=== PATIENT | male | born 1935 | race Caucasian/White ===

== ENCOUNTER 2017-03-20 18:25 | Emergency (ER) | payer MEDICARE, BC ==
[2017-03-20] MEDS ORDERED: Aspirin 81 MG Tab.Chew ONE (18:32)
[2017-03-20 19:06] LABS: CHLORIDE,CL 103 mmol/L (98-115); SODIUM,NA 143 mmol/L (136-145)
[2017-03-20] MEDS ORDERED: Aspirin 81 MG Tab.Chew PO ONE (19:18)
[2017-03-20] MEDS ORDERED: Nitroglycerin/D5W 25 MG/250 ML BOTTLE IV SCH ×2 (19:30)
[2017-03-20] MEDS ORDERED: Metoprolol Tartrate 5 MG/5 ML SDV IVPUSH ONE ×2 (19:39→20:12)
[2017-03-20] MEDS ORDERED: GI Cocktail 45 ML BOTTLE PO ONE (19:40)
[2017-03-20 20:46] VITALS: BP 156/97
--- NOTE | 2017-03-20 20:52 | EDM.PDOC ---
ED HISTORY OF PRESENT ILLNESS - General Chief Complaint: Chest Pain Stated Complaint: CHEST PAIN Time Seen by Provider: 03/20/17 18:25 Source of Information: Reports: Patient, Other (girlfriend) History Limitations: Reports: No limitations - History of Present Illness INITIAL COMMENTS - FREE TEXT/NARRATIVE: 81-year-old male presents to the emergency room accompanied with his girlfriend who brought him in to the emergency room with complaints of left chest pain below his nipple and radiating to his back. Chest pain and symptoms began about 4:00 reported this as a pressure or ache. Took a nitroglycerin at 1600 with no relief he took another one again at 5:30 in the evening with no relief and one in route to the emergency room at 8:15 with no relief. Again none of the nitroglycerin has given him relief of his pain. He denies any jaw pain numbness or tingling. Denies any heartburn or reflux. Denies pain radiating down his arm. He's had a prior AR in the past. He's had stent placements in the past. He' s had a CABG in 2009 as well as a pacemaker placement. Reports since his CABG he has not had to take any nitroglycerin this is the first time that he is taking the nitroglycerin. Denies palpations, or diaphoresis. He has a history of juf-ctvkppw-acvalzoux diabetes high cholesterol and hypertension. He takes are lisinopril and hydrochlorothiazide for his blood pressure. His blood pressure has well-controlled. He rates his pain a 7/10. Symptom Onset Date: 03/20/17 Symptom Onset Time: 16:00 Timing/Duration: Reports: Hour(s): Severity: severe Location, General: Reports: chest (left chest below the nipple), back Quality: Reports: Ache, Other (constant) Improves with: Reports: None Worsens with: Reports: None Associated Symptoms (General): Reports: chest pain, other (back pain). Denies: diaphoresis, fever/chills, headaches, nausea/vomiting, shortness of breath, syncope Treatments WOOD CUTTER: Reports: Nitroglycerin (4:00, 5:30, 8:15 with no relief) - Related Data Allergies/ADRs: Allergies Allergy/AdvReac Type Severity Reaction Status Date / Time IV contrast Allergy unknown Uncoded 03/15/14 13:06 Home Meds: Home Meds Clopidogrel Bisulfate [Clopidogrel] 1 tab PO DAILY 03/15/14 [History] Ezetimibe [Zetia] 10 mg PO DAILY 03/15/14 [History] Lisinopril/Hydrochlorothiazide [Lisinopril-Hctz 10-12.5 mg Tab] 1 tab PO DAILY 03/15/14 [History] Omeprazole Magnesium [Prilosec Otc] 20 mg PO DAILY 03/15/14 [History] metFORMIN [Glucophage] 500 mg PO BIDM 03/15/14 [History] Past Medical History HEENT History: Reports: Cataract, Impaired vision Cardiovascular History: Reports: High cholesterol, Hypertension, AR, Pacemaker, Stents Respiratory History: Reports: None Gastrointestinal History: Reports: GERD Genitourinary History: Reports: None Musculoskeletal History: Reports: Fracture Neurological History: Reports: None Psychiatric History: Reports: None Endocrine/Metabolic History: Reports: None Hematologic History: Reports: None Immunologic History: Reports: None Oncologic (Cancer) History: Reports: Other (see below) 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 - Infectious Disease History Infectious Disease History: Reports: Measles - Past Surgical History HEENT Surgical History: Reports: Cataract surgery Cardiovascular Surgical History: Reports: Carotid stents Respiratory Surgical History: Reports: None GI Surgical History: Reports: None Male Surgical History: Reports: None Endocrine Surgical History: Reports: None Neurological Surgical History: Reports: None Musculoskeletal Surgical History: Reports: None Oncologic Surgical History: Reports: None Social & Family History - Tobacco Use Smoking Status *Q: Former Smoker Years of Tobacco use: 20 Packs/Tins Daily: 0.5 Used Tobacco, but Quit: Yes Month Tobacco Last Used: March Second Hand Smoke Exposure: No - Recreational Drug Use Recreational Drug Use: No ED ROS GENERAL - Review of Systems Review Of Systems: See Below Constitutional: Denies: fever, chills, weakness, diaphoresis HEENT: Denies: Ear pain, Other (denies neck pain or jaw pain) Respiratory: Reports: No Symptoms Cardiovascular: Reports: Chest pain, Blood pressure problem, Dyspnea on exertion. Denies: Palpitations Endocrine: Reports: high glucose GI/Abdominal: Denies: Abdominal pain : Denies: no symptoms, flank pain Musculoskeletal: Reports: back pain Skin: Denies: cyanosis, jaundice, diaphoresis Neurological: Reports: No Symptoms Psychiatric: Reports: No symptoms Hematologic/Lymphatic: Reports: no symptoms Immunologic: Reports: no symptoms ED EXAM, GENERAL - Physical Exam Exam: See Below Exam Limited By: No limitations General Appearance: alert, mild distress, obese Eye Exam: bilateral eye: EOMI, PERRL Throat/Mouth: Normal inspection, Normal oropharynx, Normal voice Head: atraumatic, normocephalic Neck: normal inspection, supple, non-tender. No: carotid bruit, lymphadenopathy (L), lymphadenopathy (R) Respiratory/Chest: no respiratory distress, lungs clear, no accessory muscle use Cardiovascular: normal peripheral pulses, regular rate, rhythm, no murmur Peripheral Pulses: 1+: dorsalis pedis (L), dorsalis pedis (R), 2+: carotid (L), carotid (R) GI/Abdominal: normal bowel sounds, soft, non tender, no abnormal bruit, no mass Back Exam: normal inspection, CVA tenderness (L), CVA tenderness (R) Extremities: normal inspection, normal range of motion Neurological: alert, oriented, CN II-XII intact, no motor/sensory deficits Psychiatric: normal affect, normal mood Skin Exam: Warm, Dry, Intact, Normal color, No rash. No: Diaphoretic Lymphatic: no adenopathy EKG INTERPRETATION EKG Date: 03/20/17 Time: 18:38 Rate (beats/min): 95 EKG Interpretation Comments: electronic ventricular pacemaker. Course - Vital Signs Last Recorded V/S: Last Vital Signs Temp 97.2 F 03/20/17 19:06 Pulse 85 03/20/17 20:44 Resp 21 H 03/20/17 20:03 BP 156/97 H 03/20/17 20:44 Pulse Ox 96 03/20/17 20:03 - Orders/Labs/Meds Orders: Active Orders 24 hr Category Date Time Status EKG Documentation Completion [RC] ASDIRECTED Care 03/20/17 19:18 Active CXR [Chest 2V] [CR] Stat Exams 03/20/17 18:38 Taken Nitroglycerin/D5W [Nitroglycerin 25 MG/D5W 250 ML] Med 03/20/17 19:30 Active 25 mg in 250 ml IV TITRATE EKG 12 Lead [EK] Routine Ther 03/20/17 19:18 Ordered Medication Orders Nitroglycerin/Dextrose (Nitroglycerin 25 Mg/D5w 250 Ml) 25 mg in 250 mls @ 6 mls/hr IV TITRATE LACHELLE; 10 MCG/MIN PRN Reason: Protocol Labs: Laboratory Tests 03/20/17 03/20/17 03/20/17 Range/Units 18:30 18:30 18:30 WBC 14.0 H (5.0-10.0) 10^3/uL RBC 4.95 (4.50-6.00) 10^6/uL Hgb 15.6 (13.0-17.0) g/dL Hct 45.0 (40.0-52.0) % MCV 90.9 (82.0-92.0) fL MCH 31.5 H (27.0-31.0) pg MCHC 34.7 (32.0-36.0) g/dL RDW 13.8 (11.5-14.5) % Plt Count 315 H (150-300) 10^3/uL MPV 7.9 (7.4-10.4) fL Neut % (Auto) 63.6 (50.0-70.0) % Lymph % (Auto) 26.3 (20.0-40.0) % [place] % (Auto) 6.8 (2.0-8.0) % Eos % (Auto) 2.5 (1.0-3.0) % Baso % (Auto) 0.8 (0.0-1.0) % Neut # (Auto) 8.9 H (2.5-7.0) 10^3/uL Lymph # (Auto) 3.7 (1.0-4.0) 10^3/uL [place] # (Auto) 1.0 H (0.1-0.8) 10^3/uL Eos # (Auto) 0.3 (0.1-0.3) 10^3/uL Baso # (Auto) 0.1 (0.0-0.1) 10^3/uL PT 10.1 (8.9-11.4) SEC INR 1.0 (0.9-1.1) APTT 26.4 (20.8-31.2) SEC Sodium 143 (136-145) mmol/L Potassium 4.3 (3.3-5.3) mmol/L Chloride 103 (98-115) mmol/L Carbon Dioxide 28.5 (21.0-32.0) mmol/L BUN 27 H (6-25) mg/dL Creatinine 1.14 (0.51-1.17) mg/dL Est Cr Clr Drug Dosing TNP Estimated GFR (MDRD) > 60 mL/min Glucose 141 H (70-110) mg/dL Calcium 9.3 (8.7-10.3) mg/dL Creatine Kinase 174 (26-276) U/L CK-MB (CK-2) 1.90 (0.00-4.30) ng/mL Troponin I 0.07 (0.00-0.070) ng/mL B-Natriuretic Peptide 88 (0-100) pg/mL Meds: Medications Generic Name Dose Route Start Last Admin Trade Name Freq PRN Reason Stop Dose Admin Nitroglycerin/Dextrose 25 mg in 250 mls @ 6 mls/hr 03/20/17 19:30 Nitroglycerin 25 Mg/D5w 250 Ml IV TITRATE LACHELLE Protocol 10 MCG/MIN Discontinued Medications Generic Name Dose Route Start Last Admin Trade Name Freq PRN Reason Stop Dose Admin Al Hydroxide/Mg Hydroxide 45 ml 03/20/17 19:40 03/20/17 19:45 Gi Cocktail PO 03/20/17 19:41 45 ml ONETIME ONE Administration Aspirin Confirm 03/20/17 18:32 03/20/17 19:25 Aspirin Administered 03/20/17 18:33 Not Given Dose 243 mg .ROUTE .STK-MED ONE Aspirin 243 mg 03/20/17 19:18 03/20/17 18:30 Aspirin PO 03/20/17 19:19 243 mg ONETIME ONE Administration Nitroglycerin/Dextrose Confirm 03/20/17 18:58 03/20/17 19:05 Nitroglycerin 50 Mg/D5w 250 Ml Administered 03/20/17 18:59 1.5 mg Dose Administration 50 mg in 250 mls @ as directed .ROUTE .STK-MED ONE Nitroglycerin/Dextrose 25 mg in 250 mls @ 6 mls/hr 03/20/17 19:30 Nitroglycerin 25 Mg/D5w 250 Ml IV TITRATE LACHELLE Protocol 10 MCG/MIN Metoprolol Tartrate 5 mg 03/20/17 19:39 03/20/17 19:46 Lopressor IVPUSH 03/20/17 19:40 5 mg ONETIME ONE Administration Metoprolol Tartrate 5 mg 03/20/17 20:12 03/20/17 20:44 Lopressor IVPUSH 03/20/17 20:13 5 mg ONETIME ONE Administration - Radiology Interpretation Free Text/Narrative:: Chest x-ray PA and lateral Findings: Is questionable left hilar mass projecting is left hilar region. There is no pneumonia or edema. There is an incomplete inspiratory effort. Cardiac surgical changes are seen. The pacemaker seen. Impression: No pneumonia or edema. Question of left perihilar mass. - Re-Assessments/Exams Free Text/Narrative Re-Assessment/Exam: 03/20/17 21:22 Patient was given 3 chewable aspirin on upon arrival. EKG showed electronic ventricular pacemaker. Labs were ordered and troponin was 0.07. Patient was started on a nitro drip. His pain on arrival was a 7/10 and improved to a 3/10 with a nitro drip. He was given 5 mg IV metoprolol slowly over 5 minutes. His blood pressure improved with a nitro drip as well as metipranolol. He was given a total of 10 mg of IV metipranolol. Patient was given a GI cocktail. No change in his symptoms with a GI cocktail. Pain remained a 3/10. Consult for possible transfer was made to [facility]. Patient was accepted for transfer to the hospitalist with cardiology consultation and following. He was transferred by ground ambulance in stable condition Departure - Departure Time of Disposition: 20:40 Disposition: DC/Tfer to Critical Access 66 Reason for Transfer *Q: Other Condition: fair Clinical Impression: Angina pectoris, unstable Referrals: Yoli Vogel MD [Primary Care Provider] - Forms: ED Department Discharge, Interfacility Transfer EMTALA - My Orders Last 24 Hours: My Active Orders 03/20/17 18:38 CXR [Chest 2V] [CR] Stat 03/20/17 19:18 EKG Documentation Completion [RC] ASDIRECTED EKG 12 Lead [EK] Routine 03/20/17 19:30 Nitroglycerin/D5W [Nitroglycerin 25 MG/D5W 250 ML] 25 mg in 250 ml IV TITRATE - Assessment/Plan Last 24 Hours: My Active Orders 03/20/17 18:38 CXR [Chest 2V] [CR] Stat 03/20/17 19:18 EKG Documentation Completion [RC] ASDIRECTED EKG 12 Lead [EK] Routine 03/20/17 19:30 Nitroglycerin/D5W [Nitroglycerin 25 MG/D5W 250 ML] 25 mg in 250 ml IV TITRATE Assessment:: 1. Unstable angina 2. history of prior AR, stent placement, CABG, pacemaker 3. Hypertension 4. Mkv-cmjjnbn-zxodzphtk diabetes Plan: 1. Patient was transferred to [facility], for unstable angina. Patient was accepted by Dr. Loyd hospitalist, cardiology consult and and following.
== END 2017-03-20 21:00 ==
LOC: KA.ED 18:25
DX: I20.0 Unstable angina (principal); K21.9 Gastro-esophageal reflux disease without esophagitis; I10 Essential (primary) hypertension; I25.2 Old myocardial infarction; E78.00 Pure hypercholesterolemia, unspecified; Z98.49 Cataract extraction status, unspecified eye; Z87.891 Personal history of nicotine dependence; Z91.041 Radiographic dye allergy status; Z79.899 Other long term (current) drug therapy; Z79.84 Long term (current) use of oral hypoglycemic drugs
CPT/HCPCS: 71020; 80048; 82550; 82553; 83880; 84484; 85025; 85610; 85730; 93005; 96365; 96366; 96375; 96376; 99285; A9270; J3490

== ENCOUNTER 2019-11-18 09:11 | Inpatient (IN) | payer MEDICARE, BC ==
[2019-11-18] MEDS ORDERED: Magnesium Hydroxide 400 MG/5 ML Susp 30 ML Cup PO PRN (10:59)
--- NOTE | 2019-11-18 11:54 | PCM.HP.2 ---
H&P History of Present Illness - General Date of Service: 11/18/19 Admit Problem/Dx: Admission Diagnosis/Problem Admission Diagnosis/Problem Rehabilitation therapy Source of Information: Patient, Old Records, Significant Other, Other (Direct contact with song Kirby.) - History of Present Illness Initial Comments - Free Text/Narative: Admission Date: 11/18/19 Admission Diagnoses: S/P R DOMINGO on 11/11/19 S/P NSTEMI on 11/14/19, TTE on 11/14/19 unchanged from TTE in September of 2019 prior to surgery, no intervention, medical therapy Secondary Diagnoses: CKD III Grade 1 of 4 diastolic dysfunction 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 Puente at [facility] in [place] due to severe arthritis. He is reportedly doing well with therapy. He is a standby assist with a walker. His surgery went well, however, on 11/14/19 he developed chest pain and while EKG was normal he had elevated troponin. He was treated with heparin therapy and and his post-op DVT prophylaxis was changed from warfarin to xarelto. Per Nash Jimenez, whom I spoke with on the phone earlier today, he has more than expected ecchymosis to his R hip secondary to the heparin which needed to be started due to the NSTEMI. He did undergo pre-op TTE due to hx of CAD with CABG. Echo was repeated in 11/14/19 and was unchanged from previous echo with a grade 1 of 4 diastolic dysfunction. He also had some confusion, worse than baseline, felt in part to be related to morphine but he has been tolerating oxycodone and hydrocodone with near return to baseline mentation. He also reportedly had acute on chronic renal insufficiency but this corrected with his creatinine returning to baseline of 1.2-1.3. He has a hx of diabetes, metformin was discontinued due to LUPE and he only needed minimal correction with supplemental insulin. Metformin will be resumed. He is now on amiodarone, which is new for him s/p NSTEMI. I see him when he arrives. He is jovial. He states he has no pain. He had a bowel movement this morning. He has no CP or SOB. His appetite has been good. He is about to have nursing and PT assessments. I did discuss with him about his code status and he wishes to be full code stating "I want all the bells and whistles. I want to live so I can continue to annoy people". He has no questions for me. - Related Data Allergies/Adverse Reactions: Allergies Allergy/AdvReac Type Severity Reaction Status Date / Time morphine Allergy Other Verified 11/18/19 10:05 Home Medications: Home Meds Clopidogrel Bisulfate [Clopidogrel] 1 tab PO DAILY 03/15/14 [History] Ezetimibe [Zetia] 10 mg PO DAILY 03/15/14 [History] metFORMIN [Glucophage] 500 mg PO BIDM 03/15/14 [History] Acetaminophen 1,000 mg PO TID 11/18/19 [History] Amiodarone HCl [Pacerone] 200 mg PO DAILY 11/18/19 [History] Cyclobenzaprine HCl 10 mg PO TID PRN 11/18/19 [History] Gabapentin [Neurontin] 100 mg PO BID 11/18/19 [History] Hydrocodone/Acetaminophen [Hydrocodon-Acetaminophen 5-325] 1 tab PO Q4H PRN 02/02 [History] Isosorbide Mononitrate [Imdur] 30 mg PO BIDAC 11/18/19 [History] Lidocaine 700 mg TP DAILY 11/18/19 [History] Magnesium Hydroxide [Milk of Magnesia] 30 ml PO BID PRN 11/18/19 [History] Melatonin 5 mg PO BEDTIME 11/18/19 [History] Metoprolol Tartrate 25 mg PO BID 11/18/19 [History] Rivaroxaban [Xarelto] 10 mg PO BEDTIME 11/18/19 [History] Sennosides/Docusate Sodium [Senna-Docusate Sodium Tablet] 2 tab PO DAILY [History] atorvaSTATin Calcium [Atorvastatin Calcium] 40 mg PO DAILY 11/18/19 [History] Past Medical History HEENT History: Reports: Cataract, Impaired Vision Cardiovascular History: Reports: High Cholesterol, Hypertension, [place], Pacemaker, Stents Respiratory History: Reports: None Gastrointestinal History: Reports: GERD Genitourinary History: Reports: None Musculoskeletal History: Reports: Fracture Neurological History: Reports: None Psychiatric History: Reports: None Endocrine/Metabolic History: Reports: None Hematologic History: Reports: None Immunologic History: Reports: None Oncologic (Cancer) History: Reports: Other (See Below) 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 Exam - Exam Exam: See Below - Exam General: Alert, Oriented, Cooperative HEENT: Conjunctiva Clear Lungs: Clear to Auscultation, Normal Respiratory Effort Cardiovascular: Regular Rate, Regular Rhythm GI/Abdominal Exam: Normal Bowel Sounds Back Exam: Normal Inspection, Other (He has a lidoderm patch on his right lower back.) Extremities: Pedal Edema (Right greater than left), Other (Richard stockings are in place bilaterally.) Skin: Ecchymosis (Dressing on surgical site. Ecchymosis surrounds surgical site and extends to the medial thigh as well as pertially into the calf. His significant other reports the calf is improving.) Neuro Extensive - Mental Status: Alert, Oriented x3 - Problem List (1) History of total right hip arthroplasty SNOMED Code(s): 846967531735 ICD Code: Z96.641 - PRESENCE OF RIGHT ARTIFICIAL HIP JOINT Status: Acute Current Visit: No (2) CAD (coronary artery disease) SNOMED Code(s): 83678437 ICD Code: I25.10 - ATHSCL HEART DISEASE OF [place] CORONARY ARTERY W/O ANG PCTRS Status: Acute Current Visit: No (3) Pacemaker SNOMED Code(s): 169964416 ICD Code: Z95.0 - PRESENCE OF CARDIAC PACEMAKER Status: Acute Current Visit: No (4) Diabetes mellitus type 2 in obese SNOMED Code(s): 25397330 ICD Code: E11.69 - TYPE 2 DIABETES MELLITUS WITH OTHER SPECIFIED COMPLICATION ; E66.9 - OBESITY, UNSPECIFIED Status: Acute Current Visit: No (5) Diabetic neuropathy SNOMED Code(s): 473711605, 094888037 ICD Code: E11.40 - TYPE 2 DIABETES MELLITUS WITH DIABETIC NEUROPATHY, UNSP Status: Acute Current Visit: No (6) Acid reflux SNOMED Code(s): 134142035 ICD Code: K21.9 - GASTRO-ESOPHAGEAL REFLUX DISEASE WITHOUT ESOPHAGITIS Status: Acute Current Visit: No (7) Hypertension SNOMED Code(s): 54809489 ICD Code: I10 - ESSENTIAL (PRIMARY) HYPERTENSION Status: Acute Current Visit: No (8) Osteoarthritis SNOMED Code(s): 365760594 ICD Code: M19.90 - UNSPECIFIED OSTEOARTHRITIS, UNSPECIFIED SITE Status: Acute Current Visit: No (9) Small cell lung cancer in adult SNOMED Code(s): 316299587 ICD Code: C34.90 - MALIGNANT NEOPLASM OF UNSP PART OF UNSP BRONCHUS OR LUNG Status: Acute Current Visit: No Problem List Initiated/Reviewed/Updated: Yes Orders Last 24hrs: Active Orders 24 hr Category Date Time Status Patient Status [ADT] Routine ADT 11/18/19 10:57 Active Dressing Change [Wound Care] [RC] DAILY Care 11/18/19 10:03 Active Oxygen Therapy [RC] PRN Care 11/18/19 10:57 Active Up ad Ruth [RC] ASDIRECTED Care 11/18/19 10:57 Active VTE/DVT Education [RC] PER UNIT ROUTINE Care 11/18/19 10:57 Active Vital Signs [RC] DAILY Care 11/18/19 10:57 Active PT Evaluation and Treatment [CONS] Routine Cons 11/18/19 10:57 Active Heart Healthy Diet [DIET] Diet 11/18/19 Lunch Active Acetaminophen [Tylenol Extra Strength] Med 11/18/19 14:00 Ordered 1,000 mg PO TID Acetaminophen/HYDROcodone [[place] 325-5 MG] Med 11/18/19 10:59 Ordered 1 tab PO Q4H PRN Amiodarone [Cordarone] Med 11/19/19 09:00 Ordered 200 mg PO DAILY Clopidogrel [Plavix] Med 11/19/19 09:00 Ordered 75 mg PO DAILY Cyclobenzaprine [Flexeril] Med 11/18/19 10:59 Ordered 10 mg PO TID PRN Docusate Sodium/Sennosides [Senna Plus] Med 11/19/19 09:00 Ordered 2 tab PO DAILY Ezetimibe [Zetia] Med 11/19/19 09:00 Ordered 10 mg PO DAILY Gabapentin [Neurontin] Med 11/18/19 21:00 Ordered 100 mg PO BID Isosorbide Mononitrate [Imdur] Med 11/18/19 17:30 Ordered 30 mg PO BIDAC Lidocaine 5% [Lidoderm 5%] Med 11/19/19 09:00 Ordered 700 mg TRDERM DAILY Magnesium Hydroxide [Milk of Magnesia] Med 11/18/19 10:59 Ordered 30 ml PO BID PRN Melatonin [Melatonin] Med 11/18/19 21:00 Ordered 5 mg PO BEDTIME Metoprolol Tartrate [Lopressor] Med 11/18/19 21:00 Ordered 25 mg PO BID Rivaroxaban [Xarelto] Med 11/18/19 21:00 Ordered 10 mg PO BEDTIME atorvaSTATin [Lipitor] Med 11/19/19 09:00 Ordered 40 mg PO DAILY metFORMIN [Glucophage] Med 11/18/19 18:00 Ordered 500 mg PO BIDM Resuscitation Status Routine Resus Stat 11/18/19 10:57 Ordered Medication Orders Acetaminophen (Tylenol Extra Strength) 1,000 mg PO TID LACHELLE Hydrocodone Bitart/Acetaminophen ([place] 325-5 Mg) 1 tab PO Q4H PRN PRN Reason: Pain Amiodarone HCl (Cordarone) 200 mg PO DAILY [facility] Atorvastatin Calcium (Lipitor) 40 mg PO DAILY LACHELLE Clopidogrel Bisulfate (Plavix) 75 mg PO DAILY [facility] Cyclobenzaprine HCl (Flexeril) 10 mg PO TID PRN PRN Reason: Muscle Spasm Ezetimibe (Zetia) 10 mg PO DAILY [facility] Gabapentin (Neurontin) 100 mg PO BID LACHELLE Isosorbide Mononitrate (Imdur) 30 mg PO BIDAC LACHELLE Lidocaine (Lidoderm 5%) 700 mg TRDERM DAILY LACHELLE Magnesium Hydroxide (Milk Of Magnesia) 30 ml PO BID PRN PRN Reason: Constipation Metformin HCl (Glucophage) 500 mg PO BIDM [facility] Metoprolol Tartrate (Lopressor) 25 mg PO BID [facility] Non-Formulary Medication (Melatonin [Melatonin]) 5 mg PO BEDTIME LACHELLE Rivaroxaban (Xarelto) 10 mg PO BEDTIME [facility] Senna/Docusate Sodium (Senna Plus) 2 tab PO DAILY [facility] Assessment/Plan Comment:: S/P T DOMINGO 11/11/19--PT eval and treat. Hydrocodone/APAP for pain control. Dressing change PRN. S/P NSTEMI 11/14/19, medically managed--on optimal medical therapy. CKD III. Stable. CAD--Medical therapy. DM2--Resume metformin, last A1C May 2019, 6.1, previous was 6.0. Diabetic neuropathy--Continue gabapentin. Acid Reflux--Omeprazole discontinued at [facility], will monitor. HTN--Continue home meds. Lisinopril was discontinued. OA Hx small cell lung cancer--currently in remission. - Mortality Measure Prognosis:: Good
[2019-11-18] MEDS ORDERED: Cyclobenzaprine 10 MG Tab PO PRN (12:30)
[2019-11-18] MEDS: Acetaminophen 500 MG Tab PO SCH ×2 (16:19→20:39)
[2019-11-18] MEDS: metFORMIN 500 MG Tab PO SCH (18:21)
[2019-11-18] MEDS: Isosorbide Mononitrate 30 MG Tab.ER PO SCH (18:21)
[2019-11-18] MEDS: Metoprolol Tartrate 25 MG Tab PO SCH (20:38)
[2019-11-18] MEDS: Rivaroxaban 10 MG Tab PO SCH (20:41)
[2019-11-18] MEDS: Melatonin 3 MG Tab PO SCH (20:41)
[2019-11-18] MEDS: Gabapentin 100 MG Cap PO SCH (20:41)
[2019-11-18] MEDS: Acetaminophen/HYDROcodone 325-5 MG Tab PO PRN (21:30)
[2019-11-19] MEDS: metFORMIN 500 MG Tab PO SCH ×2 (08:09→18:42)
[2019-11-19] MEDS: Isosorbide Mononitrate 30 MG Tab.ER PO SCH ×2 (08:10→18:43)
[2019-11-19 08:16] LABS: ANION GAP 15.1 mmol/L (5-15)
[2019-11-19] MEDS ORDERED: Bisacodyl 10 MG Supp RECTAL ONE (09:07)
[2019-11-19] MEDS: Acetaminophen 500 MG Tab PO SCH ×3 (09:09→20:24)
[2019-11-19] MEDS: Clopidogrel 75 MG Tab PO SCH (09:10)
[2019-11-19] MEDS: atorvaSTATin 40 MG Tab PO SCH (09:11)
[2019-11-19] MEDS: Gabapentin 100 MG Cap PO SCH ×2 (09:11→20:24)
[2019-11-19] MEDS: Ezetimibe 10 MG Tab PO SCH (09:12)
[2019-11-19] MEDS: Acetaminophen/HYDROcodone 325-5 MG Tab PO PRN ×2 (09:13→20:25)
[2019-11-19] MEDS: Lidocaine 5% 700 MG Patch TRDERM SCH (09:17)
[2019-11-19] MEDS: Metoprolol Tartrate 25 MG Tab PO SCH ×2 (09:17→20:25)
[2019-11-19] MEDS: Amiodarone 200 MG Tab PO SCH (09:18)
[2019-11-19] MEDS: Rivaroxaban 10 MG Tab PO SCH (20:24)
[2019-11-19] MEDS: Melatonin 3 MG Tab PO SCH (20:24)
[2019-11-20] MEDS: Isosorbide Mononitrate 30 MG Tab.ER PO SCH ×2 (06:36→18:11)
[2019-11-20] MEDS: Acetaminophen/HYDROcodone 325-5 MG Tab PO PRN ×2 (06:36→22:14)
[2019-11-20] MEDS: Lidocaine 5% 700 MG Patch TRDERM SCH (08:33)
[2019-11-20] MEDS: Clopidogrel 75 MG Tab PO SCH (08:34)
[2019-11-20] MEDS: Polyethylene Glycol 3350 Powder 17 GM Packet PO SCH (08:34)
[2019-11-20] MEDS: atorvaSTATin 40 MG Tab PO SCH (08:34)
[2019-11-20] MEDS: Acetaminophen 500 MG Tab PO SCH ×3 (08:35→20:33)
[2019-11-20] MEDS: Amiodarone 200 MG Tab PO SCH (08:35)
[2019-11-20] MEDS: Ezetimibe 10 MG Tab PO SCH (08:35)
[2019-11-20] MEDS: Metoprolol Tartrate 25 MG Tab PO SCH ×2 (08:36→20:32)
[2019-11-20] MEDS: metFORMIN 500 MG Tab PO SCH ×2 (08:36→18:11)
[2019-11-20] MEDS: Gabapentin 100 MG Cap PO SCH ×2 (08:36→20:31)
[2019-11-20] MEDS: Rivaroxaban 10 MG Tab PO SCH (20:32)
[2019-11-20] MEDS: Melatonin 3 MG Tab PO SCH (20:32)
[2019-11-21] MEDS: Isosorbide Mononitrate 30 MG Tab.ER PO SCH ×2 (07:26→17:04)
[2019-11-21] MEDS: metFORMIN 500 MG Tab PO SCH ×2 (08:04→18:05)
[2019-11-21] MEDS: atorvaSTATin 40 MG Tab PO SCH (08:31)
[2019-11-21] MEDS: Ezetimibe 10 MG Tab PO SCH (08:31)
[2019-11-21] MEDS: Amiodarone 200 MG Tab PO SCH (08:31)
[2019-11-21] MEDS: Gabapentin 100 MG Cap PO SCH ×2 (08:31→20:52)
[2019-11-21] MEDS: Polyethylene Glycol 3350 Powder 17 GM Packet PO SCH (08:31)
[2019-11-21] MEDS: Acetaminophen 500 MG Tab PO SCH ×3 (08:32→20:53)
[2019-11-21] MEDS: Clopidogrel 75 MG Tab PO SCH (08:32)
[2019-11-21] MEDS: Metoprolol Tartrate 25 MG Tab PO SCH ×2 (08:33→20:52)
[2019-11-21] MEDS: Lidocaine 5% 700 MG Patch TRDERM SCH (09:00)
--- NOTE | 2019-11-21 09:46 | PCM.PN ---
- General Info Date of Service: 11/21/19 Admission Dx/Problem (Free Text): Admission Diagnosis/Problem Admission Diagnosis/Problem Rehabilitation therapy - Review of Systems Systems Review Comment:: Aaron is seen today on swingbed rounds. He is here for PT after a R DOMINGO. He has been doing well over the weekend. He has some baseline confusion and has not been the best about remembering to use his walker for ambulation and while he is SBA, he often does not call for help when getting up to move from bed to chair, chair to bed or to the bathroom. When nursing staff has been with him they do note he is getting along quite well. His pain is currently a 5/10, that is the most pain he ever has per his report, it is often less than that. He has been passing his bowels. - Patient Data Vitals - Most Recent: Last Vital Signs Temp 97.4 F 11/21/19 06:18 Pulse 74 11/21/19 08:33 Resp 18 11/21/19 06:18 BP 128/65 11/21/19 08:33 Pulse Ox 97 11/21/19 06:18 Weight - Most Recent: 246 lb 6.4 oz I&O - Last 24 Hours: Intake & Output 11/20/19 11/21/19 11/21/19 22:59 06:59 14:59 Intake Total 420 150 Balance 420 150 Med Orders - Current: Current Medications Acetaminophen (Tylenol Extra Strength) 1,000 mg PO TID [facility] Last Admin: 11/21/19 08:32 Dose: 1,000 mg Hydrocodone Bitart/Acetaminophen ([place] 325-5 Mg) 1 tab PO Q4H PRN PRN Reason: Pain Last Admin: 11/20/19 22:14 Dose: 1 tab Amiodarone HCl (Cordarone) 200 mg PO DAILY [facility] Last Admin: 11/21/19 08:31 Dose: 200 mg Atorvastatin Calcium (Lipitor) 40 mg PO DAILY [facility] Last Admin: 11/21/19 08:31 Dose: 40 mg Clopidogrel Bisulfate (Plavix) 75 mg PO DAILY [facility] Last Admin: 11/21/19 08:32 Dose: 75 mg Cyclobenzaprine HCl (Flexeril) 10 mg PO TID PRN PRN Reason: Muscle Spasm Ezetimibe (Zetia) 10 mg PO DAILY [facility] Last Admin: 11/21/19 08:31 Dose: 10 mg Gabapentin (Neurontin) 100 mg PO BID [facility] Last Admin: 11/21/19 08:31 Dose: 100 mg Isosorbide Mononitrate (Imdur) 30 mg PO BIDAC [facility] Last Admin: 11/21/19 07:26 Dose: 30 mg Lidocaine (Lidoderm 5%) 700 mg TRDERM DAILY [facility] Last Admin: 11/21/19 09:00 Dose: 700 mg Magnesium Hydroxide (Milk Of Magnesia) 30 ml PO BID PRN PRN Reason: Constipation Last Admin: 11/19/19 08:07 Dose: 30 ml Melatonin (Melatonin) 3 mg PO BEDTIME [facility] Last Admin: 11/20/19 20:32 Dose: 3 mg Metformin HCl (Glucophage) 500 mg PO BIDM [facility] Last Admin: 11/21/19 08:04 Dose: 500 mg Metoprolol Tartrate (Lopressor) 25 mg PO BID [facility] Last Admin: 11/21/19 08:33 Dose: 25 mg Miscellaneous Information (Remove Patch) 1 ea TRDERM DAILY@2100 [facility] Last Admin: 11/20/19 20:36 Dose: 1 ea Polyethylene Glycol (Miralax) 17 gm PO DAILY [facility] Last Admin: 11/21/19 08:31 Dose: 17 gm Rivaroxaban (Xarelto) 10 mg PO BEDTIME [facility] Last Admin: 11/20/19 20:32 Dose: 10 mg Senna/Docusate Sodium (Senna Plus) 2 tab PO DAILY [facility] Last Admin: 11/21/19 08:33 Dose: 2 tab Discontinued Medications Bisacodyl (Dulcolax) 10 mg RECTAL ONETIME ONE Stop: 11/19/19 09:08 Last Admin: 11/19/19 09:23 Dose: 10 mg - Exam General: Alert, Oriented, Cooperative, No Acute Distress Lungs: Clear to Auscultation, Normal Respiratory Effort Cardiovascular: Regular Rate, Regular Rhythm, No Murmurs GI/Abdominal Exam: Normal Bowel Sounds Sepsis Event Note - Evaluation Sepsis Screening Result: No Definite Risk - Focused Exam Vital Signs: Vital Signs Temp Pulse Pulse Resp BP BP Pulse Ox 11/21/19 08:33 74 128/65 11/21/19 07:26 141/69 H 11/21/19 06:18 97.4 F 61 18 137/67 97 Date Exam was Performed: 11/21/19 Time Exam was Performed: 09:42 - Problem List & Annotations (1) History of total right hip arthroplasty SNOMED Code(s): 571956876787 Code(s): Z96.641 - PRESENCE OF RIGHT ARTIFICIAL HIP JOINT Status: Acute Current Visit: No (2) CAD (coronary artery disease) SNOMED Code(s): 68374159 Code(s): I25.10 - ATHSCL HEART DISEASE OF [place] CORONARY ARTERY W/O ANG PCTRS Status: Acute Current Visit: No (3) Pacemaker SNOMED Code(s): 082972880 Code(s): Z95.0 - PRESENCE OF CARDIAC PACEMAKER Status: Acute Current Visit: No (4) Diabetes mellitus type 2 in obese SNOMED Code(s): 52074667 Code(s): E11.69 - TYPE 2 DIABETES MELLITUS WITH OTHER SPECIFIED COMPLICATION ; E66.9 - OBESITY, UNSPECIFIED Status: Acute Current Visit: No (5) Diabetic neuropathy SNOMED Code(s): 346162777, 693635165 Code(s): E11.40 - TYPE 2 DIABETES MELLITUS WITH DIABETIC NEUROPATHY, UNSP Status: Acute Current Visit: No (6) Acid reflux SNOMED Code(s): 863176335 Code(s): K21.9 - GASTRO-ESOPHAGEAL REFLUX DISEASE WITHOUT ESOPHAGITIS Status: Acute Current Visit: No (7) Hypertension SNOMED Code(s): 76707194 Code(s): I10 - ESSENTIAL (PRIMARY) HYPERTENSION Status: Acute Current Visit: No (8) Osteoarthritis SNOMED Code(s): 120678317 Code(s): M19.90 - UNSPECIFIED OSTEOARTHRITIS, UNSPECIFIED SITE Status: Acute Current Visit: No (9) Small cell lung cancer in adult SNOMED Code(s): 787269398 Code(s): C34.90 - MALIGNANT NEOPLASM OF UNSP PART OF UNSP BRONCHUS OR LUNG Status: Acute Current Visit: No - Problem List Review Problem List Initiated/Reviewed/Updated: Yes - Assessment Assessment:: S/P T DOMINGO 11/11/19--PT eval and treat. Hydrocodone/APAP for pain control. Dressing change PRN. S/P NSTEMI 11/14/19, medically managed--on optimal medical therapy. CKD III. Stable. CAD--Medical therapy. DM2--Resume metformin, last A1C May 2019, 6.1, previous was 6.0. Diabetic neuropathy--Continue gabapentin. Acid Reflux--Omeprazole discontinued at [place], will monitor. HTN--Continue home meds. Lisinopril was discontinued. OA Hx small cell lung cancer--currently in remission. - Plan Plan:: S/P T DOMINGO 11/11/19--PT eval and treat. Hydrocodone/APAP for pain control. Dressing change PRN. S/P NSTEMI 11/14/19, medically managed--on optimal medical therapy. CKD III. Stable. CAD--Medical therapy. DM2--Resume metformin, last A1C May 2019, 6.1, previous was 6.0. Diabetic neuropathy--Continue gabapentin. Acid Reflux--Omeprazole discontinued at [place], will monitor. HTN--Continue home meds. Lisinopril was discontinued. OA Hx small cell lung cancer--currently in remission.
[2019-11-21] MEDS: Acetaminophen/HYDROcodone 325-5 MG Tab PO PRN (13:18)
[2019-11-21] MEDS ORDERED: Acetaminophen 500 MG Tab ONE (20:14)
[2019-11-21] MEDS: Melatonin 3 MG Tab PO SCH (20:52)
[2019-11-21] MEDS: Rivaroxaban 10 MG Tab PO SCH (20:53)
[2019-11-22] MEDS: Acetaminophen/HYDROcodone 325-5 MG Tab PO PRN
[2019-11-22] MEDS: Polyethylene Glycol 3350 Powder 17 GM Packet PO SCH (08:04)
[2019-11-22] MEDS: atorvaSTATin 40 MG Tab PO SCH (08:04)
[2019-11-22] MEDS: Gabapentin 100 MG Cap PO SCH ×2 (08:05→22:17)
[2019-11-22] MEDS: Metoprolol Tartrate 25 MG Tab PO SCH ×2 (08:05→22:16)
[2019-11-22] MEDS: Acetaminophen 500 MG Tab PO SCH ×3 (08:05→22:17)
[2019-11-22] MEDS: Ezetimibe 10 MG Tab PO SCH (08:05)
[2019-11-22] MEDS: metFORMIN 500 MG Tab PO SCH ×2 (08:06→19:18)
[2019-11-22] MEDS: Amiodarone 200 MG Tab PO SCH (08:06)
[2019-11-22] MEDS: Clopidogrel 75 MG Tab PO SCH (08:06)
[2019-11-22] MEDS: Isosorbide Mononitrate 30 MG Tab.ER PO SCH ×2 (08:06→19:18)
[2019-11-22] MEDS: Lidocaine 5% 700 MG Patch TRDERM SCH (08:07)
[2019-11-22] MEDS: Melatonin 3 MG Tab PO SCH (22:17)
[2019-11-22] MEDS: Rivaroxaban 10 MG Tab PO SCH (22:18)
[2019-11-23] MEDS: metFORMIN 500 MG Tab PO SCH (07:48)
[2019-11-23] MEDS: Isosorbide Mononitrate 30 MG Tab.ER PO SCH (07:49)
[2019-11-23] MEDS: Polyethylene Glycol 3350 Powder 17 GM Packet PO SCH (09:03)
[2019-11-23] MEDS: Clopidogrel 75 MG Tab PO SCH (09:05)
[2019-11-23] MEDS: Acetaminophen 500 MG Tab PO SCH (09:05)
[2019-11-23] MEDS: Ezetimibe 10 MG Tab PO SCH (09:05)
[2019-11-23] MEDS: Gabapentin 100 MG Cap PO SCH (09:05)
[2019-11-23] MEDS: atorvaSTATin 40 MG Tab PO SCH (09:05)
[2019-11-23] MEDS: Metoprolol Tartrate 25 MG Tab PO SCH (09:05)
[2019-11-23] MEDS: Lidocaine 5% 700 MG Patch TRDERM SCH (09:06)
[2019-11-23] MEDS: Amiodarone 200 MG Tab PO SCH (09:06)
[2019-11-23 09:08] VITALS: BP 114/60; PULSE 65
--- NOTE | 2019-11-23 09:09 | PCM.DCSUM1 ---
Discharge Summary - Hospital Course Free Text/Narrative:: Admission Date: 11/18/2019 Discharge Date: 11/23/2019 Disposition: Home with home health agency for PT, OT and nursing. Admission Diagnoses: s/p R DOMINGO 11/11/19 s/p NSTEMI 11/14/19, medical management Secondary Diagnoses: CKD III Grade 1 of 4 diastolic dysfunction CAD [place] II s/p pacemaker DM2 Diabetic neuropathy Acid reflux HTN OA Hx small cell lung cancer, currently in remission Cognitive impairment Aaron is being discharged from a swingbed stay at [facility] for PT after R DOMINGO performed on 11/11/19 at [facility] in [place], [place]. While in [place] he did have a NSTEMI and this was medically managed. He had no episodes of CP or SOB while in the swingbed here in [place]. He progressed well with therapy and is deemed appropriate to return to home with home health for PT, OT and nursing services. He is to have his dominic removed on 11/25/2019 and this can be done in the home. He reportedly has follow-up with orthopedics on 12/25/2019 per his significant other. He is walking with his walker. He has been passing his bowels. His pain is controlled with hydrocodone and he will be sent home on this. He will also remain on Xarelto for DVT prophylaxis, discontinuation to be directed by orthopedics. His swingbed stay was as expected with no complications. This serves are a face to face encounter for home health services to include PT , OT and longterm. He has a skilled need and is homebound due to recent hip surgery. He needs an in-home therapy program to address strength and endurance as well as gait stability due to recent right total hip arthroplasty. This will require in home PT and OT. He requires longterm due to need for staple removal on 11/25/2019 and to evaluate his incision to monitor for signs/symptoms of infection. He will be followed by Dr. Yoli Johnson in the community setting and she will sign the home health orders. Diagnosis: Stroke: No Modified [place] Scale: Slight Disable;Unable to Carry Out Prev Act.Able to Look After Affairs Modified [place] Scale Score: 2 - Discharge Data Discharge Date: 11/23/19 Discharge Disposition: Home, W Home Health Agency 06 Condition: Good - Referral to Home Health Date of Face to Face Encounter: 11/23/19 Reason for Homebound Status: Right total hip arthroplasty Primary Care Physician: Yoli Vogel MD Skilled Need: PT, OT, nursing. - Discharge Diagnosis/Problem(s) (1) History of total right hip arthroplasty SNOMED Code(s): 647591955358 ICD Code: Z96.641 - PRESENCE OF RIGHT ARTIFICIAL HIP JOINT Status: Acute Current Visit: No (2) CAD (coronary artery disease) SNOMED Code(s): 30393738 ICD Code: I25.10 - ATHSCL HEART DISEASE OF [place] CORONARY ARTERY W/O ANG PCTRS Status: Acute Current Visit: No (3) Pacemaker SNOMED Code(s): 673468683 ICD Code: Z95.0 - PRESENCE OF CARDIAC PACEMAKER Status: Acute Current Visit: No (4) Diabetes mellitus type 2 in obese SNOMED Code(s): 44517945 ICD Code: E11.69 - TYPE 2 DIABETES MELLITUS WITH OTHER SPECIFIED COMPLICATION ; E66.9 - OBESITY, UNSPECIFIED Status: Acute Current Visit: No (5) Diabetic neuropathy SNOMED Code(s): 281975145, 519574271 ICD Code: E11.40 - TYPE 2 DIABETES MELLITUS WITH DIABETIC NEUROPATHY, UNSP Status: Acute Current Visit: No (6) Acid reflux SNOMED Code(s): 252295457 ICD Code: K21.9 - GASTRO-ESOPHAGEAL REFLUX DISEASE WITHOUT ESOPHAGITIS Status: Acute Current Visit: No (7) Hypertension SNOMED Code(s): 81026940 ICD Code: I10 - ESSENTIAL (PRIMARY) HYPERTENSION Status: Acute Current Visit: No (8) Osteoarthritis SNOMED Code(s): 453182941 ICD Code: M19.90 - UNSPECIFIED OSTEOARTHRITIS, UNSPECIFIED SITE Status: Acute Current Visit: No (9) Small cell lung cancer in adult SNOMED Code(s): 159071085 ICD Code: C34.90 - MALIGNANT NEOPLASM OF UNSP PART OF UNSP BRONCHUS OR LUNG Status: Acute Current Visit: No - Patient Summary/Data Consults: Consultations 11/18/19 10:57 PT Evaluation and Treatment [CONS] Routine - Patient Instructions Diet: Heart Healthy Diet, Diabetic Diet Wound/Incision Care: Keep Operative Site/Wound Site Clean and Dry Notify Provider of: Fever, Increased Pain, Swelling and Redness, Drainage - Discharge Plan *PRESCRIPTION DRUG MONITORING PROGRAM REVIEWED*: Not Applicable *COPY OF PRESCRIPTION DRUG MONITORING REPORT IN PATIENT EARL: Not Applicable Home Medications: Home Meds Clopidogrel Bisulfate [Clopidogrel] 1 tab PO DAILY 03/15/14 [History] Ezetimibe [Zetia] 10 mg PO DAILY 03/15/14 [History] metFORMIN [Glucophage] 500 mg PO BIDM 03/15/14 [History] Acetaminophen 1,000 mg PO TID 11/18/19 [History] Amiodarone HCl [Pacerone] 200 mg PO DAILY 11/18/19 [History] Cyclobenzaprine HCl 10 mg PO TID PRN 11/18/19 [History] Gabapentin [Neurontin] 100 mg PO BID 11/18/19 [History] Hydrocodone/Acetaminophen [Hydrocodon-Acetaminophen 5-325] 1 tab PO Q4H PRN 02/02 [History] Isosorbide Mononitrate [Imdur] 30 mg PO BIDAC 11/18/19 [History] Lidocaine 700 mg TP DAILY 11/18/19 [History] Magnesium Hydroxide [Milk of Magnesia] 30 ml PO BID PRN 11/18/19 [History] Melatonin 5 mg PO BEDTIME 11/18/19 [History] Metoprolol Tartrate 25 mg PO BID 11/18/19 [History] Rivaroxaban [Xarelto] 10 mg PO BEDTIME 11/18/19 [History] Sennosides/Docusate Sodium [Senna-Docusate Sodium Tablet] 2 tab PO DAILY [History] atorvaSTATin Calcium [Atorvastatin Calcium] 40 mg PO DAILY 11/18/19 [History] Polyethylene Glycol 3350 [MiraLAX] 17 gm PO DAILY packet 11/23/19 [Rx] - Discharge Summary/Plan Comment DC Time >30 min.: No - General Info Date of Service: 11/23/19 Admission Dx/Problem (Free Text: Admission Diagnosis/Problem Admission Diagnosis/Problem Rehabilitation therapy - Patient Data Vitals - Most Recent: Last Vital Signs Temp 97.1 F 11/23/19 06:38 Pulse 60 11/23/19 06:38 Resp 20 11/23/19 06:38 BP 139/66 11/23/19 07:49 Pulse Ox 95 11/23/19 08:00 Weight - Most Recent: 246 lb 6.4 oz I&O - Last 24 hours: Intake & Output 11/22/19 11/23/19 11/23/19 22:59 06:59 14:59 Intake Total 300 100 Balance 300 100 BELLE Results - Last 24 hrs: Microbiology 11/18/19 19:40 Gram Stain - Final Wound - Elbow, Left 11/18/19 15:50 Gram Stain - Final Wound - Hip, Right Med Orders - Current: Current Medications Acetaminophen (Tylenol Extra Strength) 1,000 mg PO TID [facility] Last Admin: 11/22/19 22:17 Dose: 1,000 mg Hydrocodone Bitart/Acetaminophen ([place] 325-5 Mg) 1 tab PO Q4H PRN PRN Reason: Pain Last Admin: 11/22/19 00:00 Dose: 1 tab Amiodarone HCl (Cordarone) 200 mg PO DAILY [facility] Last Admin: 11/22/19 08:06 Dose: 200 mg Atorvastatin Calcium (Lipitor) 40 mg PO DAILY [facility] Last Admin: 11/22/19 08:04 Dose: 40 mg Clopidogrel Bisulfate (Plavix) 75 mg PO DAILY [facility] Last Admin: 11/22/19 08:06 Dose: 75 mg Cyclobenzaprine HCl (Flexeril) 10 mg PO TID PRN PRN Reason: Muscle Spasm Ezetimibe (Zetia) 10 mg PO DAILY [facility] Last Admin: 11/22/19 08:05 Dose: 10 mg Gabapentin (Neurontin) 100 mg PO BID [facility] Last Admin: 11/22/19 22:17 Dose: 100 mg Isosorbide Mononitrate (Imdur) 30 mg PO BIDAC [facility] Last Admin: 11/23/19 07:49 Dose: 30 mg Lidocaine (Lidoderm 5%) 700 mg TRDERM DAILY [facility] Last Admin: 11/22/19 08:07 Dose: 700 mg Magnesium Hydroxide (Milk Of Magnesia) 30 ml PO BID PRN PRN Reason: Constipation Last Admin: 11/19/19 08:07 Dose: 30 ml Melatonin (Melatonin) 3 mg PO BEDTIME [facility] Last Admin: 11/22/19 22:17 Dose: 3 mg Metformin HCl (Glucophage) 500 mg PO BIDM [facility] Last Admin: 11/23/19 07:48 Dose: 500 mg Metoprolol Tartrate (Lopressor) 25 mg PO BID [facility] Last Admin: 11/22/19 22:16 Dose: 25 mg Miscellaneous Information (Remove Patch) 1 ea TRDERM DAILY@2100 [facility] Last Admin: 11/22/19 22:17 Dose: 1 ea Polyethylene Glycol (Miralax) 17 gm PO DAILY [facility] Last Admin: 11/22/19 08:04 Dose: 17 gm Rivaroxaban (Xarelto) 10 mg PO BEDTIME [facility] Last Admin: 11/22/19 22:18 Dose: 10 mg Senna/Docusate Sodium (Senna Plus) 2 tab PO DAILY [facility] Last Admin: 11/22/19 08:04 Dose: 2 tab Discontinued Medications Acetaminophen (Tylenol Extra Strength) Confirm Administered Dose 500 mg .ROUTE .STK-MED ONE Stop: 11/21/19 20:15 Last Admin: 11/21/19 20:52 Dose: Not Given Bisacodyl (Dulcolax) 10 mg RECTAL ONETIME ONE Stop: 11/19/19 09:08 Last Admin: 11/19/19 09:23 Dose: 10 mg - Exam General: Reports: Alert, Oriented, Cooperative, No Acute Distress Lungs: Reports: Clear to Auscultation, Normal Respiratory Effort Cardiovascular: Reports: Regular Rate, Regular Rhythm, No Murmurs GI/Abdominal Exam: Normal Bowel Sounds, Soft, Non-Tender Wound/Incisions: Reports: Healing Well, Dressing Dry and Intact, No Drainage
== END 2019-11-23 13:12 | disposition home health service (06) | DRG 559 ==
LOC: KA.MS 13:29
PROVIDERS: ADMIT Orthopaedic Surgery; ATTEND Internal Medicine
DX: Z47.1 Aftercare following joint replacement surgery (principal); I21.4 Non-ST elevation (NSTEMI) myocardial infarction; N17.9 Acute kidney failure, unspecified; N18.3 Chronic kidney disease, stage 3 (moderate); I25.10 Atherosclerotic heart disease of native coronary artery without angina pectoris; E11.40 Type 2 diabetes mellitus with diabetic neuropathy, unspecified; K21.9 Gastro-esophageal reflux disease without esophagitis; H54.7 Unspecified visual loss; E78.00 Pure hypercholesterolemia, unspecified; I12.9 Hypertensive chronic kidney disease with stage 1 through stage 4 chronic kidney disease, or unspecified chronic kidney disease; G31.84 Mild cognitive impairment of uncertain or unknown etiology; Z96.641 Presence of right artificial hip joint; E11.69 Type 2 diabetes mellitus with other specified complication; E66.9 Obesity, unspecified; Z88.5 Allergy status to narcotic agent; I25.2 Old myocardial infarction; Z95.0 Presence of cardiac pacemaker; Z68.37 Body mass index [BMI] 37.0-37.9, adult; Z85.118 Personal history of other malignant neoplasm of bronchus and lung; Z79.01 Long term (current) use of anticoagulants; Z79.84 Long term (current) use of oral hypoglycemic drugs; Z98.49 Cataract extraction status, unspecified eye; Z79.899 Other long term (current) drug therapy
CPT/HCPCS: 36415; 51798; 80048; 87070; 87205; 90662; 97110-GP; 97116-GP; 97162-GP; A9270-GY; G0008

== ENCOUNTER 2020-03-21 10:31 | Emergency (ER) | payer MEDICARE, BC ==
[2020-03-21] MEDS: Sodium Chloride 0.9% 0 ML ONE (11:10)
--- NOTE | 2020-03-21 11:56 | CR ---
[id number] RAD/RAD Chest PA or AP 1V EXAM: RAD Chest PA or AP 1V INDICATION: CHEST PAIN. COMPARISON: December 19, 2019. DISCUSSION: Left chest wall cardiac conduction device. Median sternotomy wires. Cardiomediastinal silhouette is normal in size and contour. Stable elevation left hemidiaphragm. No infiltrate, effusion, pneumothorax, or edema. Pulmonary hyperinflation. Bibasilar subsegmental atelectasis and/or scarring. IMPRESSION: No acute cardiopulmonary abnormality. Kev Jane DO 03/21/20 [id number] Thank you for allowing us to participate in the care of your patient.
[2020-03-21 11:59] LABS: PTT,PARTIAL THROMBOPLSTIN TIME 21.8 SEC (23.1-31.3)
[2020-03-21 12:06] LABS: ANION GAP 20.4 mmol/L (5-15); CHLORIDE,CL 106 mmol/L (98-115); SODIUM,NA 147 mmol/L (136-145)
--- NOTE | 2020-03-21 12:39 | CR ---
[id number] RAD/RAD Lumbar Spine 2-3V EXAM: AP AND LATERAL LUMBAR SPINE. INDICATION: Back pain. COMPARISON: No previous similar exam is available for comparison. FINDINGS: Age-indeterminate compression deformity of the L4 vertebral body with approximately 10-20% loss of body height. No significant retropulsion. The pedicles are intact. Multilevel degenerative changes of the lumbar spine including loss of disc space height, endplate osteophytosis and facet arthropathy. These findings are most pronounced at L4-L5 and L5-S1. Extensive vascular calcifications. Postsurgical changes following total right hip arthroplasty. IMPRESSION: AGE-INDETERMINATE COMPRESSION DEFORMITY OF THE L4 VERTEBRAL BODY WITH APPROXIMATELY 10-20% LOSS OF BODY HEIGHT. ADDITIONAL CHRONIC FINDINGS ABOVE. Kev Jane DO 03/21/20 0874 Thank you for allowing us to participate in the care of your patient.
--- NOTE | 2020-03-21 14:32 | EDM.PDOC ---
ED HPI GENERAL MEDICAL PROBLEM - General Chief Complaint: General Stated Complaint: CHILLS,NOT FEELING WELL Time Seen by Provider: 03/21/20 10:35 Source of Information: Reports: Significant Other History Limitations: Reports: Altered Mental Status (confusion dementia) - History of Present Illness INITIAL COMMENTS - FREE TEXT/NARRATIVE: 84-year-old male presents to emergency room brought in by his significant other with generalized complaints of chest discomfort back ache and chills. Patient stated that he did not feel well to his significant other this morning and therefore she brings him in for further evaluation. Patient is a difficult from getting any history due to progressing dementia over the past year. He is been followed by Dr. Yoli Johnson in the past. He is really unable to translate any of his a significant past history. His significant other does live with him and is able to provide good care for him in addition to his medications. He does have a significant history of coronary artery disease, CABG, NE. He had a hip replacement the last year and has had some decline in his memory since then. He denies any fevers or nausea or vomiting currently. He denies significant chest pain currently. Had some increased low back pain but does have a long history of back difficulties. He denies increased shortness of breath although has some baseline shortness of breath always. He is not on home oxygen. He denies current abdominal pain, constipation, diarrhea. He denies headache. He denies change in speech. He is not had any syncopal episodes or falls. He does feel unsteady at times on his feet or ambulating. Onset: Today Onset Date: 03/21/20 Onset Time: 08:00 Duration: Hour(s):, Improving Location: Reports: Generalized Quality: Reports: Ache Severity: Mild Improves with: Reports: None Worsens with: Reports: None Context: Denies: Sick Contact, Trauma Associated Symptoms: Reports: Confusion, Chest Pain, Fever/Chills (Denies fever) , Shortness of Breath. Denies: Cough, Diaphoresis, Headaches, Nausea/Vomiting - Related Data Allergies Allergy/AdvReac Type Severity Reaction Status Date / Time morphine Allergy Other Verified 11/18/19 10:05 Home Meds: Home Meds Clopidogrel Bisulfate [Clopidogrel] 1 tab PO DAILY 03/15/14 [History] Ezetimibe [Zetia] 10 mg PO DAILY 03/15/14 [History] metFORMIN [Glucophage] 500 mg PO BIDM 03/15/14 [History] Acetaminophen 1,000 mg PO TID 11/18/19 [History] Amiodarone HCl [Pacerone] 200 mg PO DAILY 11/18/19 [History] Cyclobenzaprine HCl 10 mg PO TID PRN 11/18/19 [History] Gabapentin [Neurontin] 100 mg PO BID 11/18/19 [History] Hydrocodone/Acetaminophen [Hydrocodone-Acetamin 5-325 mg] 1 tab PO Q4H PRN 11/18 [History] Isosorbide Mononitrate [Imdur] 30 mg PO BIDAC 11/18/19 [History] Lidocaine 700 mg TP DAILY 11/18/19 [History] Magnesium Hydroxide [Milk of Magnesia] 30 ml PO BID PRN 11/18/19 [History] Melatonin 5 mg PO BEDTIME 11/18/19 [History] Metoprolol Tartrate 25 mg PO BID 11/18/19 [History] Rivaroxaban [Xarelto] 10 mg PO BEDTIME 11/18/19 [History] Sennosides/Docusate Sodium [Senna-Docusate Sodium Tablet] 2 tab PO DAILY [History] atorvaSTATin Calcium [Atorvastatin Calcium] 40 mg PO DAILY 11/18/19 [History] polyethylene glycoL 3350 [MiraLAX] 17 gm PO DAILY packet 11/23/19 [Rx] Past Medical History HEENT History: Reports: Cataract, Impaired Vision Cardiovascular History: Reports: High Cholesterol, Hypertension, NE, Pacemaker, Stents Respiratory History: Reports: None Gastrointestinal History: Reports: GERD Genitourinary History: Reports: None Musculoskeletal History: Reports: Fracture Neurological History: Reports: None Psychiatric History: Reports: None Other Psychiatric History: confusion and forgetfulness Endocrine/Metabolic History: Reports: None Hematologic History: Reports: None Immunologic History: Reports: None Oncologic (Cancer) History: Reports: Other (See Below) 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 Denies: Fever, Diaphoresis HEENT: Denies: Vertigo, Other (Dizziness) Respiratory: Reports: Shortness of Breath. Denies: Cough Cardiovascular: Reports: Chest Pain. Denies: Palpitations, Syncope Endocrine: Reports: No Symptoms GI/Abdominal: Reports: No Symptoms : Reports: Frequency. Denies: Hematuria Musculoskeletal: Reports: Back Pain Skin: Reports: Bruising Neurological: Reports: Confusion, Dizziness, Other (Dementia). Denies: Headache , Syncope, Trouble Speaking, Change in Speech Psychiatric: Reports: No Symptoms Hematologic/Lymphatic: Reports: Easy Bleeding Immunologic: Reports: No Symptoms ED EXAM, GENERAL - Physical Exam Exam: See Below Exam Limited By: Other (Poor historian and memory) General Appearance: Alert, WD/WN, No Apparent Distress, Obese Eye Exam: Bilateral Eye: EOMI, PERRL Ears: Hearing Grossly Normal Nose: Normal Inspection Throat/Mouth: Normal Inspection, Normal Oropharynx, Normal Voice, No Airway Compromise, Other (Dentures) Head: Atraumatic, Normocephalic Neck: Normal Inspection, Supple, Non-Tender Respiratory/Chest: No Respiratory Distress, Lungs Clear, Normal Breath Sounds Cardiovascular: Regular Rate, Rhythm, No Edema Peripheral Pulses: 2+: Carotid (L), Carotid (R), Radial (L), Radial (R) GI/Abdominal: Normal Bowel Sounds, Soft, Other (Obese abdomen) Back Exam: Normal Inspection Extremities: Normal Inspection, Normal Range of Motion Neurological: Alert, No Motor/Sensory Deficits, Memory Loss Recent Events Psychiatric: Normal Affect, Normal Mood Skin Exam: Warm, Dry, Intact, Normal Color Lymphatic: No Adenopathy EKG INTERPRETATION EKG Date: 03/21/20 Time: 11:01 Rate (Beats/Min): 80 QRS: Wide ST-T: Normal Comparison: NA - No Prior EKG EKG Interpretation Comments: Electronic ventricular pacemaker Course - Orders/Labs/Meds Orders: Active Orders 24 hr Category Date Time Status EKG Documentation Completion [RC] ASDIRECTED Care 03/21/20 10:48 Active EKG 12 Lead [EK] Stat Ther 03/21/20 10:48 Ordered Labs: Laboratory Tests 03/21/20 03/21/20 03/21/20 Range/Units 11:30 11:30 11:30 WBC 6.96 (5.00-10.00) 10^3/uL RBC 4.61 (4.50-6.00) 10^6/uL Hgb 13.4 (13.0-17.0) g/dL Hct 42.1 (40.0-52.0) % MCV 91.3 (82.0-92.0) fL MCH 29.1 (27.0-31.0) pg MCHC 31.8 L (32.0-36.0) g/dL RDW 15.1 H (11.5-14.5) % Plt Count 188 (150-400) 10^3/uL MPV 9.5 (7.4-10.4) fL Add Manual Diff Yes Neutrophils % (Manual) 95 H (50-70) % Lymphocytes % (Manual) 4 L (20-40) % Monocytes % (Manual) 1 L (2-8) % Absolute Neutrophils 6.6120 Lymphocytes # (Manual) 0.2784 Monocytes # (Manual) 0.0696 Clumped Platelets Few PT 10.4 (8.9-11.4) SEC INR 1.0 (0.9-1.1) APTT 21.8 L (23.1-31.3) SEC Sodium 147 H (136-145) mmol/L Potassium 4.2 (3.3-5.3) mmol/L Chloride 106 (98-115) mmol/L Carbon Dioxide 24.8 (21.0-32.0) mmol/L Anion Gap 20.4 H (5-15) mmol/L BUN 22 (6-25) mg/dL Creatinine 1.14 (0.51-1.17) mg/dL Est Cr Clr Drug Dosing TNP Estimated GFR (MDRD) > 60 mL/min Glucose 113 H (75 - 99) mg/dL Calcium 8.9 (8.7-10.3) mg/dL Total Bilirubin 0.5 (0.2-1.0) mg/dL AST 68 H (15-37) U/L ALT 61 (12-78) U/L Alkaline Phosphatase 92 (46-116) IU/L Troponin I 0.05 (0.00-0.070) ng/mL B-Natriuretic Peptide 161 H (0-100) pg/mL Total Protein 7.3 (6.4-8.2) g/dL Albumin 3.44 (3.00-4.80) g/dL Meds: Medications Discontinued Medications Generic Name Dose Route Start Last Admin Trade Name Woodrow PRN Reason Stop Dose Admin Sodium Chloride Confirm 03/21/20 11:01 Normal Saline Administered 03/21/20 11:02 Dose 1,000 mls @ as directed .ROUTE .STK-MED ONE - Re-Assessments/Exams Free Text/Narrative Re-Assessment/Exam: 03/21/20 14:40 Patient is alert and responsive to my questions. He has underlying confusion and is unable to give any significant history of his current or recent medical history. Does state that he is not currently having any chest pain. He denies significant headache. No abdominal pain or nausea symptoms. Is not experiencing chills at the time. Denies significant pain or discomfort. I have discussed this further with his significant other who does most of his care providing. I also talked with his primary care taxonomist Dr. Yoli Johnson about the patient' s dementia and progression. Family is in agreement with following up with Dr. Yoli Johnson next week. Departure - Departure Time of Disposition: 13:25 Disposition: Home, Self-Care 01 Condition: Fair Clinical Impression: Dementia Qualifiers: Dementia type: unspecified type Dementia behavioral disturbance: without behavioral disturbance Qualified Code(s): F03.90 - Unspecified dementia without behavioral disturbance Coronary artery disease with stable angina pectoris Qualifiers: Coronary Disease-Associated Artery/Lesion type: bypass graft, autologous artery Qualified Code(s): I25.728 - Atherosclerosis of autologous artery coronary artery bypass graft(s) with other forms of angina pectoris - Discharge Information Instructions: Dementia Caregiver Guide, Angina, [id number] Referrals: Yoli Vogle MD [Primary Care Provider] - Forms: ED Department Discharge - My Orders Last 24 Hours: My Active Orders 03/21/20 10:48 EKG Documentation Completion [RC] ASDIRECTED EKG 12 Lead [EK] Stat - Assessment/Plan Last 24 Hours: My Active Orders 03/21/20 10:48 EKG Documentation Completion [RC] ASDIRECTED EKG 12 Lead [EK] Stat Assessment:: Dementia Stable angina with history of coronary artery disease, CABG Plan: 1. Discussed with the Mr. Jimenez significant other about follow-up with Dr. Yoli Johnson for his dementia. We have done workup make sure that there is no elevation of his cardiac enzymes and he feels that his symptoms have essentially resolved. He does take nitroglycerin for any chest pain which is helpful. She feels she may be able to care for patient at this time. I would avoid any significant exertion of activities. If any new symptoms arise chest pain not relieved with nitroglycerin or chest pain lasting longer than 2 minutes he should be returned back to the emergency room. Patient was discharged home in stable condition.
[2020-03-21 15:35] VITALS: BP 135/70; PULSE 80
== END 2020-03-21 13:25 | disposition home or self-care (01) ==
LOC: KA.ED 10:31
DX: I25.728 Atherosclerosis of autologous artery coronary artery bypass graft(s) with other forms of angina pectoris (principal); F03.90 Unspecified dementia, unspecified severity, without behavioral disturbance, psychotic disturbance, mood disturbance, and anxiety; E78.00 Pure hypercholesterolemia, unspecified; I10 Essential (primary) hypertension; I25.2 Old myocardial infarction; Z95.5 Presence of coronary angioplasty implant and graft; K21.9 Gastro-esophageal reflux disease without esophagitis; Z79.02 Long term (current) use of antithrombotics/antiplatelets; Z79.84 Long term (current) use of oral hypoglycemic drugs; Z79.899 Other long term (current) drug therapy; Z79.01 Long term (current) use of anticoagulants; Z88.5 Allergy status to narcotic agent
CPT/HCPCS: 36415; 71045; 72100; 80053; 83880; 84484; 85025; 85610; 85730; 93005; 99284; 99285-25

== ENCOUNTER 2020-08-14 08:09 | Day surgery (SDC) | payer MEDICARE, BC ==
[~2020-08-14 08:09] MED LIST: Lidocaine 2% 100 MG/5 ML Syringe ONE; Midazolam 1 MG/ML 2 ML SDV ONE; Propofol 200 MG/20 ML SDV ONE; Sodium Chloride 0.9% 1,000 ML IV SCH; Sodium Chloride 0.9% 10 ML Syringe FLUSH PRN
[2020-08-14] MEDS ORDERED: Midazolam 1 MG/ML 2 ML SDV IV ONE (08:10)
[2020-08-14] MEDS ORDERED: Lidocaine 2% 100 MG/5 ML Syringe IVPUSH ONE (08:10)
[2020-08-14] MEDS ORDERED: Propofol 200 MG/20 ML SDV IV ONE (08:10)
[2020-08-14 08:36] VITALS: PULSE 60
--- NOTE | 2020-08-14 08:53 | PCM.PN ---
- General Info Date of Service: 08/14/20 - Review of Systems Systems Review Comment:: 85-year-old male referred for EGD and colonoscopy. He has a history of unexplained anemia. Patient does have a history of GERD symptoms for which he takes Prilosec and Rolaids. He denies ever having a previous colonoscopy. He denies any known rectal bleeding or change in bowel pattern. He also denies any family history of colon cancer. I have discussed the proposed EGD and colonoscopy with the patient. Risks such as but not limited to bleeding and GI injury reviewed. He agrees to proceed. His recent history and physical is reviewed and no significant changes are noted. - Patient Data Vitals - Most Recent: Last Vital Signs Temp 95.3 F L 08/14/20 08:31 Pulse 60 08/14/20 08:31 Resp 18 08/14/20 08:31 BP 170/85 H 08/14/20 08:31 Pulse Ox 95 08/14/20 08:31 Weight - Most Recent: 108.862 kg Lab Results Last 24 Hours: Laboratory Results - last 24 hr 08/14/20 Range/Units 08:27 POC Glucose 115 H (74-100) mg/dL Med Orders - Current: Current Medications Sodium Chloride (Normal Saline) 1,000 mls @ 50 mls/hr IV ASDIRECTED LACHELLE Last Admin: 08/14/20 08:37 Dose: 50 mls/hr Documented by: Sodium Chloride (Saline Flush) 10 ml FLUSH Q8HR PRN PRN Reason: keep vein open Discontinued Medications Midazolam HCl (Versed 1 Mg/Ml) Confirm Administered Dose 2 mg .ROUTE .STK-MED ONE Stop: 08/14/20 07:44 Propofol (Diprivan 20 Ml) Confirm Administered Dose 400 mg .ROUTE .STK-MED ONE Stop: 08/14/20 07:44 Sepsis Event Note - Focused Exam Vital Signs: Vital Signs Temp Pulse Resp BP Pulse Ox 08/14/20 08:31 95.3 F L 60 18 170/85 H 95 - Problem List Review Problem List Initiated/Reviewed/Updated: Yes - My Orders Last 24 Hours: My Active Orders 08/13/20 13:28 Resuscitation Status Routine 08/14/20 08:00 Blood Glucose Check, Bedside [RC] UPON Peripheral IV Care [RC] . DIRECTED Nothing Per Oral Diet [DIET] Sodium Chloride 0.9% [Normal Saline] 1,000 ml IV ASDIRECTED Sodium Chloride 0.9% [Saline Flush] 10 ml FLUSH Q8HR PRN Peripheral IV Insertion Adult [OM.PC] Routine 08/14/20 08:30 Patient to Empty Bladder [RC] ASDIRECTED 08/14/20 09:00 Verify Patient Consent Obtain [RC] ASDIRECTED - Assessment Assessment:: History of GERD and anemia - Plan Plan:: EGD and colonoscopy
--- NOTE | 2020-08-14 10:03 | PCM.OPNOTE ---
- General Post-Op/Procedure Note Date of Surgery/Procedure: 08/14/20 Operative Procedure(s): EGD with Biopsy and Colonoscopy with Polypectomy and Biopsy Findings: Moderate Sized Hiatal Hernia Mild Gastritis along Greater Curvature but without signs of bleeding Multiple Polyps lower colon Large Soft Sessile Polyp/Mass Sigmoid Colon 15cm Extensive Sigmoid Diverticulosis Pre Op Diagnosis: GERD. Anemia Post-Op Diagnosis: Hiatal Hernia. Gastritis. Colon Mass and Polyps. Sigmoid Diverticulosis Anesthesia Technique: [facility] [place] Primary Surgeon: Shane Wolf Pathology: Gastric Biopsies Colon Polyps Biopsies colon mass EBL in mLs: 3 Complications: None Condition: Good
[2020-08-14 11:10] VITALS: BP 151/82
--- NOTE | 2020-08-14 15:36 | OR ---
DATE OF SURGERY: 08/14/2020 SURGEON: Shane Wolf MD PREOPERATIVE DIAGNOSIS: Gastroesophageal reflux disease and anemia. POSTOPERATIVE DIAGNOSIS: Hiatal hernia, gastritis, multiple colon polyps, sigmoid colon mass, sigmoid diverticulosis. OPERATION PERFORMED: Esophagogastroduodenoscopy with biopsy. Colonoscopy with polypectomy and biopsy. INDICATIONS FOR SURGERY: This 85-year-old male was referred for EGD and his initial colonoscopy. He is noted to have unexplained anemia. He also has a known history of GERD. FINDINGS: On upper endoscopy, the patient has a moderate-sized hiatal hernia. This does not appear to be acutely inflamed. The gastric mucosa along the greater curvature shows mild inflammation and diffuse thickened folds consistent with gastritis. No ulcers or active bleeding are seen. On colonoscopy, the patient has multiple polyps in the lower colon. These polyps range in size from 7 to 15 mm. They were all sessile to semi-pedunculated in configuration and are soft. The patient also has a large polyp or mass in the sigmoid colon 15 cm from the anal verge. This is a flat irregular-shaped mass encompassing approximately 50% of the circumference of the bowel at this level. No ulceration, active bleeding or areas of induration are seen in this mass. The patient also has extensive diverticulosis of the sigmoid colon, which does not appear to be acutely inflamed. The remainder of the colon appears normal. DESCRIPTION OF PROCEDURE: The patient was taken to the operating room. He was given intravenous sedation and with him in the left lateral decubitus position, the Olympus gastroscope was advanced through a mouth guard into the oral cavity. Under direct visualization, the scope was then advanced to the oropharynx and down through the esophagus, stomach, and into the duodenum where examination to the 3rd portion was performed. Careful examination of the duodenum did not show any ulcers or other visible abnormalities. The scope was withdrawn back into the stomach where full examination including retroflexed examination of the fundus was performed. Random biopsies were taken of the antrum to rule out H pylori. Biopsies were taken along the thickened folds in the greater curvature as well. The fundus and GE junction were carefully examined and then the esophagus was also examined as the scope was withdrawn. Attention was turned to colonoscopy. Digital rectal exam was performed showing no rectal masses. The Olympus colonoscope was inserted into the rectum and retroflexed examination of the rectal canal was performed. In examination of the rectum and lower part of the colon, multiple polyps were identified. These are removed in groups of 4-5 polyps in the rectum, in the sigmoid colon at 25 cm level and in the sigmoid colon at the 30 cm level. Also noted was the mass in the lower part of the sigmoid colon. This was too large to consider removing through standard snare technique and so random cold biopsies of this mass are taken to rule out a malignancy. The scope was then carefully advanced under direct visualization through the entire length of the colon until the cecum is reached. Cecal acquisition is confirmed by noting the normal internal cecal anatomy including the appendiceal orifice and ileocecal valve and the light was also noted to transilluminate the abdominal wall in the right lower quadrant. After examining the cecum, the scope was slowly withdrawn sequentially re-examining the colonic segments until the entire colon and rectum had been fully examined. On withdrawal of the scope, examination did not show any sign of complication at any of the polypectomy sites. With no sign of bleeding or any other complication, the scope was removed and the patient was taken from the operating room in satisfactory condition. ESTIMATED BLOOD LOSS: 3 mL. COMPLICATIONS: None. PROGNOSIS: Good. /[id number]/MODL
== END 2020-08-14 12:00 | disposition home or self-care (01) ==
LOC: KA.SDS 08:09
PROVIDERS: ATTEND Surgery
DX: D12.8 Benign neoplasm of rectum (principal); D12.5 Benign neoplasm of sigmoid colon; K44.9 Diaphragmatic hernia without obstruction or gangrene; K57.30 Diverticulosis of large intestine without perforation or abscess without bleeding; K29.50 Unspecified chronic gastritis without bleeding; K31.89 Other diseases of stomach and duodenum; K21.9 Gastro-esophageal reflux disease without esophagitis; E11.22 Type 2 diabetes mellitus with diabetic chronic kidney disease; I12.9 Hypertensive chronic kidney disease with stage 1 through stage 4 chronic kidney disease, or unspecified chronic kidney disease; I25.10 Atherosclerotic heart disease of native coronary artery without angina pectoris; D50.9 Iron deficiency anemia, unspecified; N18.3 Chronic kidney disease, stage 3 (moderate); E11.40 Type 2 diabetes mellitus with diabetic neuropathy, unspecified; Z88.5 Allergy status to narcotic agent; Z87.891 Personal history of nicotine dependence; Z91.041 Radiographic dye allergy status; Z79.899 Other long term (current) drug therapy; Z79.84 Long term (current) use of oral hypoglycemic drugs; Z79.82 Long term (current) use of aspirin
CPT/HCPCS: 00813; 43239; 45380; 45385; 82962; J2001; J2250; J2704; J7030

== ENCOUNTER 2022-11-04 09:24 | Observation (INO) | payer MEDICARE, BC ==
[2022-11-04] MEDS ORDERED: Aspirin 81 MG Tab.Chew PO ONE (09:26)
[2022-11-04] MEDS ORDERED: Nitroglycerin 0.4 MG Tab.SL SL PRN ×2 (09:26→17:35)
[2022-11-04] MEDS ORDERED: Metoprolol Tartrate 5 MG/5 ML SDV IVPUSH ONE (09:40)
[2022-11-04] MEDS: Sodium Chloride 0.9% 10 ML Syringe FLUSH PRN ×2 (10:01→10:55)
[2022-11-04 10:16] LABS: ANION GAP 12.3 mmol/L (5-15); CHLORIDE,CL 102 mmol/L (98-107); SODIUM,NA 140 mmol/L (136-145)
[2022-11-04 10:17] LABS: ESTIMATED GFR 60 mL/min (>=60)
[2022-11-04] MEDS ORDERED: Donepezil 10 MG Tab PO ONE (10:38)
[2022-11-04] MEDS ORDERED: Amiodarone 200 MG Tab PO ONE (10:38)
[2022-11-04] MEDS ORDERED: Furosemide 40 MG/4 ML VIAL IVPUSH ONE (10:40)
[2022-11-04] MEDS: metFORMIN 500 MG Tab PO SCH (19:26)
[2022-11-04] MEDS: Metoprolol Tartrate 25 MG Tab PO SCH (20:47)
[2022-11-04] MEDS ORDERED: QUEtiapine 25 MG Tab PO SCH (21:00)
[2022-11-04] MEDS ORDERED: Gabapentin 100 MG Cap PO SCH (21:00)
[2022-11-04] MEDS ORDERED: Donepezil 10 MG Tab PO SCH (21:00)
[2022-11-04] MEDS ORDERED: Acetaminophen 500 MG Tab PO SCH (21:00)
[2022-11-05] MEDS: metFORMIN 500 MG Tab PO SCH (08:05)
[2022-11-05] MEDS: Metoprolol Tartrate 25 MG Tab PO SCH (08:07)
[2022-11-05 08:11] VITALS: BP 158/72; PULSE 60
[2022-11-05] MEDS ORDERED: Finasteride 5 MG Tab PO SCH (09:00)
[2022-11-05] MEDS ORDERED: Clopidogrel 75 MG Tab PO SCH (09:00)
[2022-11-05] MEDS ORDERED: Amiodarone 200 MG Tab PO SCH (09:00)
[2022-11-05] MEDS ORDERED: Pantoprazole 40 MG Tab.CR PO SCH (09:00)
[2022-11-05] MEDS ORDERED: Aspirin 81 MG Tab.EC PO SCH (09:00)
[2022-11-05] MEDS ORDERED: Gabapentin 100 MG Cap PO SCH (09:00)
[2022-11-05] MEDS ORDERED: Ezetimibe 10 MG Tab PO SCH (09:00)
[2022-11-05] MEDS ORDERED: Isosorbide Mononitrate 30 MG Tab.ER PO SCH (09:00)
[2022-11-05] MEDS ORDERED: atorvaSTATin 40 MG Tab PO SCH (09:00)
== END 2022-11-05 11:02 | disposition home or self-care (01) ==
LOC: KA.ED 09:24 → KA.MS 14:04
PROVIDERS: ADMIT Internal Medicine; ATTEND Internal Medicine
DX: I25.118 Atherosclerotic heart disease of native coronary artery with other forms of angina pectoris (principal); F03.90 Unspecified dementia, unspecified severity, without behavioral disturbance, psychotic disturbance, mood disturbance, and anxiety; E11.69 Type 2 diabetes mellitus with other specified complication; K21.9 Gastro-esophageal reflux disease without esophagitis; I10 Essential (primary) hypertension; E78.00 Pure hypercholesterolemia, unspecified; D70.1 Agranulocytosis secondary to cancer chemotherapy; I45.4 Nonspecific intraventricular block; Z79.899 Other long term (current) drug therapy; Z79.84 Long term (current) use of oral hypoglycemic drugs; Z79.82 Long term (current) use of aspirin; Z98.890 Other specified postprocedural states; Z95.0 Presence of cardiac pacemaker; R79.89 Other specified abnormal findings of blood chemistry
CPT/HCPCS: 36415; 71045; 80053; 83880; 84484; 85025; 85379; 93005; 93010; 96374; 96375; 99217; 99220; 99285-25; A9270-GY; J1940; J3490